=== PATIENT | male | born 1955 | race Caucasian/White ===

== ENCOUNTER 2018-08-02 16:29 | Emergency (ER) | payer OTHER ==
[2018-08-02 17:01] VITALS: BP 134/86
--- NOTE | 2018-08-02 17:38 | UC ---
Respiratory Complaint HPI - HPI Summary HPI Summary: 5 days of cough, congestion, PND and sinus pressure. No fever, sore throat or ear pain. No nausea/vomiting. with similar symptoms. - History of Current Complaint Chief Complaint: UCRespiratory Stated Complaint: RESP Time Seen by Provider: 08/02/18 17:08 Hx Obtained From: Patient Onset/Duration: Gradual Onset, Lasting Days, Still Present Timing: Constant Severity Initially: Moderate Severity Currently: Moderate Pain Intensity: 6 Pain Scale Used: 0-10 Numeric Character: Cough: Productive Aggravating Factors: Nothing Alleviating Factors: Nothing Associated Signs And Symptoms: Positive: URI, Nasal Congestion, Sinus Discomfort. Negative: Fever, Chills, Wheezing - Allergies/Home Medications Allergies/Adverse Reactions: Allergies Allergy/AdvReac Type Severity Reaction Status Date / Time niacin Allergy Severe burning Verified 08/02/18 17:02 sensation, flushing CHOLESTEROL MEDICATION Allergy Severe TENSE UP Uncoded 08/02/18 17:02 WITH COUGH PMH/Surg Hx/FS Hx/Imm Hx Previously Healthy: Yes - Surgical History Surgical History: Yes Surgery Procedure, Year, and Place: COLONOSCOPY WITH SEDATION, RIGHT HIP REPLACEMENT, left hip replacement - Family History Known Family History: Positive: Hypertension, Diabetes - Social History Alcohol Use: None Alcohol Amount: 6 PACK/WEEK Substance Use Type: None Smoking Status (MU): Never Smoked Tobacco - Immunization History Most Recent Influenza Vaccination: NO Most Recent Tetanus Shot: UP TO DATE Most Recent Pneumonia Vaccination: NO Review of Systems Constitutional: Negative ENT: Nasal Discharge, Sinus Congestion Respiratory: Cough Cardiovascular: Negative Gastrointestinal: Negative All Other Systems Reviewed And Are Negative: Yes Physical Exam Triage Information Reviewed: Yes Appearance: Well-Appearing, No Pain Distress, Well-Nourished Vital Signs: Initial Vital Signs Temp 99.1 F 08/02/18 16:57 Pulse 81 08/02/18 16:57 Resp 16 08/02/18 16:57 BP 134/86 08/02/18 16:57 Pulse Ox 99 08/02/18 16:57 Vital Signs Reviewed: Yes Eyes: Positive: Conjunctiva Clear ENT: Positive: Hearing grossly normal, Pharynx normal, TMs normal Neck: Positive: Supple, Nontender, No Lymphadenopathy Respiratory Exam: Normal Cardiovascular Exam: Normal Abdomen Description: Positive: Soft Musculoskeletal: Positive: No Edema Neurological: Positive: Alert Psychological: Positive: Age Appropriate Behavior Skin: Negative: rashes UC Diagnostic Evaluation - Laboratory O2 Sat by Pulse Oximetry: 99 Respiratory Course/Dx - Differential Dx/Diagnosis Provider Diagnoses: ACUTE URI Discharge - Sign-Out/Discharge Documenting (check all that apply): Patient Departure All imaging exams completed and their final reports reviewed: No Studies - Discharge Plan Condition: Stable Disposition: HOME Prescriptions: Amoxicillin PO (*) [Amoxicillin 500 MG CAP*] 500 mg PO Q12H #14 cap Patient Education Materials: Upper Respiratory Infection (ED) Referrals: Luke Morrissey MD [Primary Care Provider] - If Needed Additional Instructions: YOUR SYMPTOMS ARE LIKELY VIRALLY MEDIATED AND SHOULD RESOLVE ON THEIR OWN WITH TIME. NO INDICATION FOR ANTIBIOTICS AT PRESENT. REST, HYDRATE, OTC MEDS NEEDED. IF YOU ARE NOT IMPROVING OVER THE NEXT WEEK GO AHEAD AND FILL RX FOR ANTIBIOTIC. IF YOU START THE MEDICINE TAKE IT FOR THE FULL COURSE. FOLLOW-UP WITH PCP IF NEEDED. - Billing Disposition and Condition Condition: STABLE Disposition: Home
== END 2018-08-02 17:40 | disposition home or self-care (01) ==
LOC: UCEAST 16:29
DX: J06.9 Acute upper respiratory infection, unspecified (principal); Z96.643 Presence of artificial hip joint, bilateral; Z88.8 Allergy status to other drugs, medicaments and biological substances
CPT/HCPCS: 99212; G0463

== ENCOUNTER 2018-10-24 06:53 | Inpatient (IN) | payer OTHER ==
[2018-10-24] MEDS ORDERED: Heparin for STEMI(*) 5,000 UNITS/ML 1 ML VIAL IV ONE ×2 (07:07→07:10)
[2018-10-24] MEDS ORDERED: Ticagrelor* 90 MG TAB PO ONE ×2 (07:07→07:10)
[2018-10-24] MEDS ORDERED: NS 0.9% 1000 ML* 1,000 ML IV ONE (07:07)
[2018-10-24] MEDS ORDERED: Heparin 2 UNITS/ML IVPREMIX* 3,000 ML IV ONE (07:09)
[2018-10-24] MEDS ORDERED: VERAPAMIL 2.5 MG/ML 2 ML VIAL ** 5 mg/2 ml ONE (07:09)
[2018-10-24] MEDS ORDERED: Heparin(*) 1000 UNIT/ML 10 ML VIAL CATH LAB IV ONE (07:09)
--- NOTE | 2018-10-24 07:09 | ED ---
HPI Chest Pain - HPI Summary HPI Summary: Patient is a 63 y/o M presenting to ED via ambulance with complaints of midsternal chest pain with radiation to left arm onsetting 0230 today. Pt states woke him from sleep. Pt states pressure was 6/10 and discomfort left arm. Slight nausea no vomiting. no sob. No cough. EMS reports giving x2 nitro and 324 ASA with improvement of pain - reporting 1/10. no Hx of cardiac issues are reported. Pt does have elevated cholesterol - does not take statins as "allergic" Niacin caused flushing. Father and brother both with cardiac disease. No history of stroke, VT, bleeding disorders. No recent hx. b/l hip replacements. Patient is alert and oriented x3 at this time. On triage, pain is rated 3/10. Home medications and allergies are reviewed. Review of EKG revealed concerns of STEMI, STEMI code called at 0701, provider in room immediately to evaluate. - History of Current Complaint Chief Complaint: EDChestPainROMI Time Seen by Provider: 10/24/18 06:59 Hx Obtained From: Patient Onset/Duration: Started Hours Ago - onset 0230 today, Still Present Timing: Lasting Hours - onset 0230 Current Severity: Mild - 3/10 Pain Intensity: 3 Pain Scale Used: 0-10 Numeric - 3/10 Chest Pain Location: Mid Sternal Chest Pain Radiates: Yes Chest Pain Radiates To:: Arm - left Aggravating Factor(s): Nothing Alleviating Factor(s): Nothing Associated Signs and Symptoms: Positive: Chest Pain. Negative: Nausea, Vomiting - Additional Pertinent History Primary Care Physician: [id number] - Allergy/Home Medications Allergies/Adverse Reactions: Allergies Allergy/AdvReac Type Severity Reaction Status Date / Time niacin Allergy Severe burning Verified 08/02/18 17:02 sensation, flushing CHOLESTEROL MEDICATION Allergy Severe TENSE UP Uncoded 08/02/18 17:02 WITH COUGH PMH/Surg Hx/FS Hx/Imm Hx Previously Healthy: Yes Endocrine/Hematology History: Denies: Hx Anticoagulant Therapy, Hx Diabetes, Hx Thyroid Disease Cardiovascular History: Reports: Other Cardiovascular Problems/Disorders - HIGH CHOLESTEROL Denies: Hx Hypertension Respiratory History: Denies: Hx Asthma, Hx Chronic Obstructive Pulmonary Disease (COPD) GI History: Denies: Hx Ulcer Musculoskeletal History: Reports: Hx Arthritis - LEFT HIP, LOWER BACK, Other Musculoskeletal History - 3 SOFT TISSUE FUSED VERTABRAE IN NECK-FROM Sensory History: Reports: Hx Contacts or Glasses Denies: Hx Hearing Aid Opthamlomology History: Reports: Hx Contacts or Glasses - Surgical History Surgery Procedure, Year, and Place: COLONOSCOPY WITH SEDATION, RIGHT HIP REPLACEMENT, left hip replacement Hx Anesthesia Reactions: No Infectious Disease History: No Infectious Disease History: Denies: Hx Hepatitis, Hx Human Immunodeficiency Virus (HIV), Traveled Outside the [place] in Last 30 Days - Family History Known Family History: Positive: Hypertension, Diabetes - Social History Lives: With Family Alcohol Use: None Alcohol Amount: 6 PACK/WEEK Substance Use Type: Reports: None Smoking Status (MU): Never Smoked Tobacco Review of Systems Constitutional: Negative Positive: Chest Pain Negative: Shortness Of Breath Positive: Nausea. Negative: Vomiting All Other Systems Reviewed And Are Negative: Yes Physical Exam - Summary Physical Exam Summary: Vital Signs Reviewed: Yes A+Ox3, no distress Eyes: Conjunctiva Clear, ENT: Hearing grossly normal mmmoist Neck: Positive: Supple Respiratory: Positive: No respiratory distress, No accessory muscle use + CTA throughout no w/r Cardiovascular: RRR nl s1, s2 no m/r CBT <2 sec abd soft + BS nt/nd no guarding, no distension Musculoskeletal Exam: ALEXANDER x 4 without difficulty Strength Intact, ROM Intact Neurological: Positive: Alert, + sensation throughout Psychological: Positive: Normal Response To Family Skin: Positive: no rash, no ecchymosis, pale, no diaphoresis Triage Information Reviewed: Yes Vital Signs On Initial Exam: Initial Vitals Temp Pulse Resp BP Pulse Ox 97.1 F 69 16 100/58 98 10/24/18 06:56 10/24/18 06:56 10/24/18 06:56 10/24/18 06:56 10/24/18 06:56 Diagnostics - Vital Signs Vital Signs Temp Pulse Resp BP Pulse Ox 10/24/18 06:56 97.1 F 69 16 100/58 98 - Laboratory Lab Statement: Any lab studies that have been ordered have been reviewed, and results considered in the medical decision making process. - Radiology No standard instances Radiology Interpretation Completed By: ED Physician - no PTX no infiltrate - EKG No standard instances Cardiac Rate: NL EKG Rhythm: Sinus Rhythm ST Segment: : Normal - ST elevated inferior, no reciprocal changes Ectopy: None EKG Comparison: Other - STEMI Chest Pain Course/Dx - Course Course Of Treatment: Patient presents to ED by EMS. Patient states he woke at 2 :30 this morning reporting chest pressure with radiation to left arm and nausea. No vomiting. Patient was given aspirin and nitroglycerin by EMS with improvement. Patient does not have a cardiac history but does have a history of high cholesterol extensive family history of cardiac disease. On arrival patient's EKG revealed elevations in inferior leads. No cervical changes. Patient rated his pain a 1 out of 10 after receiving 324 mg of aspirin and 2 nitroglycerin by EMS. STEMI alert was called. Patient was given Proventil and heparin at the direction of Dr. Lewis - pt without h/o stroke, bleeding, clotting disorder. STEMI protocol was started. Discussed with patient as well as his concern for STEMI improvement in Her. States understanding. Questions answered best of my ability. She lab team as well as ICU team present at bedside the emergency department. - Diagnoses Provider Diagnoses: STEMI (ST elevation myocardial infarction) During the Visit The Following Alert/Code Occurred: STEMI - 07 called - Provider Notifications Discussed Care Of Patient With: Joshua Lewis - give Brilinta and 4000u heparin Time Discussed With Above Provider: 07:03 Instructed by Provider To: Admit As Inpatient - Critical Care Time Critical Care Time: 30-74 min Discharge - Sign-Out/Discharge Documenting (check all that apply): Patient Departure - Discharge Plan Condition: Good Disposition: ADMITTED TO [facility] Referrals: Luke Morrissey MD [Primary Care Provider] - - Billing Disposition and Condition Condition: GOOD Disposition: Admitted to [facility] - Attestation Statements Document Initiated by Joann: Yes Documenting Scribe: Daniel Pinzon Provider For Whom Joann is Documenting (Include Credential): Valeri Foster MD Scribe Attestation: IDaniel, scribed for Valeri Foster MD on 10/24/18 at 0731. Scribe Documentation Reviewed: Yes Provider Attestation: The documentation as recorded by the Daniel oconnell accurately reflects the service I personally performed and the decisions made by me, Valeri Foster MD Status of Scribe Document: Viewed
[2018-10-24] MEDS ORDERED: Iohexol 350 (CONTRAST) 200 ML MDV IV ONE (07:10)
[2018-10-24] MEDS ORDERED: Lidocaine 1% INJ* 10 MG/ML 30 ML SDV ONE (07:10)
[2018-10-24] MEDS ORDERED: nitroGLYCERIN DRIP* 25,000 MCG/250 ML BTL ONE (07:10)
[2018-10-24 07:19] LABS: ABS Basophils 0.1 10^3/ul (0-0.2); ABS Eosinophils 0.3 10^3/ul (0-0.6); ABS Lymphocytes 1.9 10^3/ul (1.0-4.8); ABS Monocytes 0.6 10^3/ul (0-0.8); ABS Neutrophils 7.5 10^3/ul (1.5-7.7); ABS Nucleated RBC 0 10^3/ul; Hematocrit 44 % (42-52); Hemoglobin 15.1 g/dl (14.0-18.0); Mean Corpuscular HGB Conc 35 g/dl (31-36); Mean Corpuscular Hemoglobin 32 pg (27-31); Mean Corpuscular Volume 92 fL (80-94); Nucleated Red Blood Cells % 0; Platelet Count 177 10^3/ul (150-450); Red Blood Count 4.76 10^6/ul (4.00-5.40); Red Cell Distribution Width 13 % (10.5-15); White Blood Count 10.4 10^3/ul (3.5-10.8)
[2018-10-24] MEDS ORDERED: fentaNYL* 50 MCG/ML 2 ML VIAL (100 MCG VIAL) ONE (07:29)
[2018-10-24] MEDS ORDERED: Midazolam* 1 MG/ML 10 ML VIAL (10 MG) ONE (07:29)
[2018-10-24 07:38] LABS: Activated Partial Thrombo Time 27.7 seconds (26.0-36.3); INR 1.01 (0.77-1.02)
[2018-10-24] MEDS ORDERED: Bivalirudin(*) 250 MG VIAL ONE (07:39)
[2018-10-24 07:41] LABS: Albumin/Globulin Ratio 1.5 (1-3); BUN/Creatinine Ratio 15.9 (8-20); Calcium 9.2 mg/dL (8.6-10.3); EGFR Non-African American 87.5 (>60); Globulin 2.6 g/dL (2-4); Potassium 3.9 mmol/L (3.5-5.0); Total Bilirubin 0.6 mg/dL (0.2-1.0); Total Protein 6.6 g/dL (6.4-8.9)
--- NOTE | 2018-10-24 07:43 | UC ---
- Progress Note Progress Note: Patient Name: RO HENDERSON Medical Record#: [id number] Ordering Physician: Valeri Foster MD Acct.#: [id number] : 1955 Age: 63 Sex: M Location: CARDIAC CATHETERIZATION LAB Exam Date: 10/24/18706 ADM Status: REG [facility] [place] Order Information: CHEST AP PORTABLE Accession Number: [id number] CPT: 06500 HISTORY: chest pain COMPARISONS: None VIEWS: 1: frontal AP view of the chest at 7:20 AM FINDINGS: LINES AND TUBES: None. CARDIOMEDIASTINAL SILHOUETTE: The cardiomediastinal silhouette is normal for portable technique. PLEURA: The costophrenic angles are sharp. No pleural abnormalities are noted. LUNG PARENCHYMA: The lungs are clear. ABDOMEN: The upper abdomen is clear. There is no subphrenic gas. BONES AND SOFT TISSUES: No bone or soft tissue abnormalities are noted. IMPRESSION: NO ACTIVE CARDIOPULMONARY DISEASE. <Electronically signed by Paco Fowler MD in OV> 10/24/18736 Dictated By: Paco Fowler MD Dictated Date/Time: 10/24/18736 Transcribed Date/Time: 10/24/18736 Copy to: CC:Luke Morrissey MD; Valeri Foster MD; Joshua Lewis MD Imaging - [facility] Imaging - [facility] [address] [address] ph ([phone]) ph ([phone]) ph ([phone]) This report is only to be considered final once signed by the Provider(s) as displayed in the "<Electronically Signed by >" field (s). Absence of a signature indicates the report is in a draft status and still needs to be finalized. In the event this document was created by someone other than the signing Provider, the individual initiating the document will be listed in the "Entered by:" or "Dictated by:" [email or web address]. 1 of 1 Course/Dx - Diagnoses Provider Diagnoses: STEMI (ST elevation myocardial infarction) During the Visit The Following Alert/Code Occurred: STEMI - 0701 called - Provider Notifications Time Discussed With Above Provider: 07:03 Instructed by Provider To: Admit As Inpatient - Critical Care Time Critical Care Time: 30-74 min Discharge - Sign-Out/Discharge Documenting (check all that apply): Patient Departure - Discharge Plan Condition: Good Disposition: ADMITTED TO [facility] - Billing Disposition and Condition Condition: GOOD Disposition: Admitted to [facility]
[2018-10-24] MEDS ORDERED: Atropine SYRINGE* 0.1 MG/ML 10 ML SYRINGE (1 MG) ONE (07:59)
[2018-10-24] MEDS ORDERED: Norepinephrine VIAL* 1 MG/ML 4 ML VIAL ONE (07:59)
[2018-10-24] MEDS ORDERED: Nitroglycerin TAB 0.4 MG* 0.4 MG TAB SL PRN (08:24)
[2018-10-24] MEDS ORDERED: Ondansetron INJ* 2 MG/ML VIAL IV PRN (08:24)
[2018-10-24] MEDS ORDERED: Zolpidem TAB* 5 MG PO PRN (08:24)
[2018-10-24] MEDS ORDERED: Docusate CAP* 100 MG PO PRN (08:24)
[2018-10-24] MEDS ORDERED: fentaNYL* 50 MCG/ML 2 ML VIAL (100 MCG VIAL) IV PRN (08:24)
[2018-10-24] MEDS ORDERED: Acetaminophen TAB* 325 MG PO PRN (08:24)
[2018-10-24] MEDS ORDERED: NS 0.9% 1000 ML* 1,000 ML IV SCH (08:30)
[2018-10-24] MEDS ORDERED: CMCS Rosuvastatin (NF) 20 MG TAB PO ONE (09:00)
[2018-10-24] MEDS: Aspirin 81 mg CHEW TAB* 81 MG TAB.CHEW PO SCH (09:48)
[2018-10-24] MEDS: Metoprolol Tartrate TAB* 25 MG PO SCH ×2 (09:48→20:49)
[2018-10-24] MEDS: Ticagrelor* 90 MG TAB PO SCH ×2 (09:51→20:49)
--- NOTE | 2018-10-24 13:42 | HP ---
CC: Dr. Luke Morrissey HISTORY AND PHYSICAL: DATE OF ADMISSION: 10/24/18 CHIEF COMPLAINT: The patient presents with chest discomfort starting at 2:00 in the morning with abnormal EKG in the emergency room suggesting acute ST- segment elevation inferior wall myocardial infarction. HISTORY OF PRESENT ILLNESS: The patient is a pleasant 63-year-old gentleman with no prior known cardiac history. Specifically, he denies any history of myocardial infarction, congestive heart failure, or significant heart rhythm disturbance. The patient stated that at 2:00 in the morning, he woke with a chest pressure sensation that started radiating up towards his throat area and into his left shoulder. He did not have profound shortness of breath or diaphoresis with it. He actually took a beer to see if that would help relax him and apparently the symptoms would last about an hour, then go away for a couple of minutes and come back again in a slightly stuttering fashion, albeit still a prolonged period. He eventually sought medical attention and EMS were called. The EMS on presentation tried to get an EKG, there was much artifact but they were questioning whether there was ST-segment elevation in the inferior leads; however, they could not definitively comment on it. En route, they gave him nitroglycerin and 324 mg of aspirin. The patient stated there was some improvement of his symptoms but they were still present in the emergency room. Repeat EKG in the emergency room revealed the ST-segment elevation with what appeared to be already Q waves developed in several of the inferior leads. There was reciprocal ST-segment depression in I and aVL. A STEMI alert was called. On my arrival, he was still symptomatic, albeit not severe in nature. The risks and benefits were explained to him regarding proceeding for emergent cardiac catheterization and possible intervention. He had already received 4000 units of heparin by the emergency room and 180 mg Brilinta. He and his understood the risks and benefits and wished to proceed. PAST MEDICAL HISTORY AND CARDIAC RISK FACTORS: He has hyperlipidemia and is apparently intolerant of statins due to muscle aching. He denied any history of hypertension, any history of diabetes, and he has never smoked. PAST SURGICAL HISTORY: Included bilateral hip surgeries. FAMILY HISTORY: He has a family history significant for father and brother who have cardiac problems. REVIEW OF SYSTEMS: Pertinent to proceeding emergently to the cardiovascular laboratory: The patient denied any history of hematochezia, hematemesis or hematuria. He denied any history of stroke or TIA. He denied any history of contrast allergy or kidney disease. PHYSICAL EXAMINATION GENERAL: When I see him in the emergency room reveals a gentleman in mild distress, nervous in nature. VITAL SIGNS: Blood pressure 100-102/59, pulse 69 and regular, respirations 19, O2 saturation 98%. HEENT: Conjunctivae were pink. Sclerae clear. Mouth reveals moist mucosa. NECK: Supple. There is no increased JVP. Carotids have fair upstroke and volume and I do not appreciate definitive bruits or transmitted murmur. LUNGS: Reveal no accessory muscle usage. There is fair excursion. There is no active rales, rhonchi or wheezes present. HEART: Reveals no visible heaves, no palpable heaves or thrills. Heart sounds in general are distant due to large chest. No significant systolic or diastolic murmur appreciated. ABDOMEN: Obese, soft, nontender. EXTREMITIES: Without clubbing, cyanosis or rayne pitting edema. Peripheral pulses are intact. Femoral pulses noted without bruits. NEUROLOGIC: The patient is alert and oriented with normal mentation. MUSCULOSKELETAL: The patient moves all extremities appropriate. PSYCHOLOGICAL: The patient with appropriate affect. LABORATORY DATA: Laboratory results at the time of seeing him in the emergency room were still pending. By the time he was brought up to the cardiovascular laboratory, his BUN and creatinine were found to be 14 and 0.8, lactic acid was 2.1, total CPK 71, MB 4.4, and troponin of 0.07. B-natriuretic peptide was 25. Hemoglobin and hematocrit were 15.1 and 44 and platelet count of 177,000. OVERALL ASSESSMENT: Forrest presents now in acute throes of ST-segment elevation inferior wall myocardial infarction. He is still symptomatic with ST- segment elevations and depressions. PLAN/RECOMMENDATIONS: The risks and benefits were explained. He understood them and wished to proceed. He has already received heparin, full dose aspirin and 180 mg Brilinta. Further management will be made pending results of the cardiac catheterization. The risks and benefits were explained to his and him and they both agreed to proceed. [id number]/[facility] #: [id number] MTDD
--- NOTE | 2018-10-24 23:21 | CATH ---
CC: Dr. Luke Morrissey* CARDIAC CATHETERIZATION AND INTERVENTIONAL REPORT: DATE OF PROCEDURE: 10/24/18 INDICATION FOR THE PROCEDURE: The patient with acute KO-vfzxhat-duxwhdnxr inferior wall myocardial infarction, with still persistent symptoms and ST elevation. PROCEDURE PERFORMED: Coronary arteriography, left heart catheterization, left ventriculography, balloon angioplasty and placement of a 3.0 x 38 mm long Synergy drug-eluting stent postdilated proximally to 3.5 mm. CONSENT: The patient was interviewed and examined in the emergency room, where the risks and benefits were explained. He understood them and wished to proceed. PRE-CARDIAC CATHETERIZATION LABORATORY RESULTS: Laboratory results were pending prior to the interview in the emergency room. Once in the cardiovascular laboratory, his BUN and creatinine were found to be normal at 14 and 0.8. Sodium was 139, potassium 3.9, chloride 105, bicarb 25, hemoglobin and hematocrit of 15.1 and 44 with a platelet count of 177,000. MEDICATIONS GIVEN DURING THE CARDIAC CATHETERIZATION: The patient received Versed and fentanyl in addition to an Angiomax bolus and an Angiomax drip started due to a subtherapeutic ACT. The patient received an atropine bolus for bradycardia. EQUIPMENT UTILIZED: 1. Right femoral artery sheath - a 6.5-[place] Merit Prelude sheath. 2. Diagnostic coronary catheter for the left coronary artery with a 5-[place] FL4 curve catheter, for the left coronary artery a guiding 6-[place] ART4 curve with side holes guide catheter. The diagnostic wire utilized was a 175 length J -tip guidewire. The interventional guidewire was a 190 cm All Star guidewire. 3. The initial balloon angioplasty catheter was a 2.5 x 15 mm long Emerge balloon. 4. The stent placed was a 3.0 x 38 mm long Synergy drug-eluting stent. 5. Post-stent deployment balloon inflation catheters included a 3.0 x 20 mm long NC Emerge and a 3.5 x 12 mm long NC Emerge balloon. 6. Left heart catheterization catheter was a 5-Niue[place] 145-degree angled pigtail catheter. 7. The closure device utilized was a 6/7-[place]ue[place] Mynx closure device. APPROACH: The decision was made to proceed via femoral artery approach given the delayed presentation of the patient with ongoing symptoms. DESCRIPTION OF PROCEDURE: The patient was prepped and draped in sterile fashion. A formal time-out was performed. The right femoral artery area was anesthetized with 1% lidocaine. The right femoral artery was cannulated with an anterior wall only stick. The sheath was placed. Coronary arteriography was performed utilizing the 5-[place] FL4 curve catheter for the left coronary artery and the guide catheter 6-Niue[place] ART4 curve with side holes for the right. ACT was checked and found to be subtherapeutic from the heparin in the emergency room. As such, an Angiomax bolus was given and an Angiomax drip was started. A 1/4 guidewire was advanced down the right coronary artery through the total occlusion. Balloon angioplasty was performed utilizing the 2.5 x 15 mm long Emerge balloon. Following this, the 3.0 x 38 mm long stent was placed with post - deployment inflations to high pressures with the NC balloons as described above. The artery was assessed at the end of this procedure. Following this, left heart catheterization was performed utilizing the pigtail catheter advanced to the ascending aorta. The catheter was passed across the aortic valve and left ventricular pressure was recorded. Left ventriculography was performed utilizing a total of 28 cc of Omnipaque dye at a rate of 14 cc per second. The catheter was then pulled back across the aortic valve to recheck gradient. At the end of the case, an injection was made into the right femoral sheath to assess the eligibility to utilize the closure device. It was found to be acceptable for this and as such, a 6/7-Niue[place] Mynx closure device was deployed with good hemostasis. The total contrast used was 118 cc of Omnipaque dye. The radiation exposure included 10.6 minutes of fluoro time. The air kerma radiation was 2416 milligray. The DAP radiation was 14,884 microgray per meter squared. RESULTS: HEMODYNAMIC DATA: Left heart catheterization - central aortic pressure recorded at 127/76 with a mean of 99, left ventricular pressure 134 over left ventricular end diastolic pressure of 15. LEFT VENTRICULOGRAPHY: Revealed normal, borderline hyperdynamic left ventricular systolic function with moderate hypokinesis of the proximal inferior wall. The overall ejection fraction estimated at 50% to 55%. CORONARY ARTERIOGRAPHY: A. Left coronary artery: 1. Left main - there was mild tapering of the distal left main with a narrowing of approximately 15% to 20%. 2. Left anterior descending artery - the left anterior descending artery had calcium seen throughout its proximal to mid portion. The mid portion of the vessel had an area of stenosis that appeared to be as much as 70% to 75% at the takeoff of a small-caliber mid diagonal branch. Prior to that was an area that appeared to have some degree of haze with a narrowing of 40% to 45% in perhaps its worst view. Past the mid narrowing of 70%, there was a segment of disease of approximately 45% to 50%, short nature. 3. Circumflex artery - a nondominant vessel supplying a thin first and second obtuse marginal branch to the third obtuse marginal branch with a moderate-sized caliber that bifurcated into a superior and an inferior branch. Just prior to the bifurcation was an area of narrowing of about 70%. The lower branch then had a significant 85% to 90% obstruction seen. IVETTE-3 flow was seen throughout this. The continuation of the circumflex supplied a very thin low-lying posterior left ventricular branch, which gave collaterals to the distal right coronary artery. There were poor collaterals trying to fill through the septal perforators to the right coronary artery. These were not significant in supplying the right coronary artery. B. Right coronary artery - a dominant vessel with diffuse disease proximally an area of 40%, followed by a second area of 75% to 80%, followed by a total occlusion in its mid segment. On reconstitution of the vessel, it supplied the PDA and posterior left ventricular branch. Mild disease was seen in those branches, but no significant obstruction. INTERVENTION INTO TOTALLY OCCLUDED MID RIGHT CORONARY ARTERY AND MORE PROXIMAL 75% TO 80% OBSTRUCTION: Successful reconstitution of totally occluded right coronary artery with balloon angioplasty and placement of a 3.0 x 38 mm long Synergy drug- eluting stent post dilated proximally to 3.5 mm with IVETTE-3 flow and 10% residual narrowing noted. OVERALL ASSESSMENT: Successful interruption of inferior ST-segment elevation myocardial infarction with balloon angioplasty and placement of a 3.0 x 38 mm long Synergy drug-eluting stent post dilated to high pressures and more proximally to 3.5 to 3.7 mm and distally to 3.2 mm with successful result. Aggressive risk factor management will be pursued. There is a question of intolerance to statin therapy, and at this point in time, consideration may have to be made toward switching him to subcutaneous injectable antihyperlipidemic agents if he is truly intolerant of the statins. We will place him back on statins currently in lower than recommended dosage and see how he tolerates. We will consult Dietary for a low-cholesterol diet and for weight reduction as well. Dual antiplatelet therapy is recommended for a minimum of 1 year's time. With respect to his residual lesions, these will be addressed most likely in a separate setting either prior to discharge or within the next month's time. [id number]/[facility] #: [id number] RAFAEL
[2018-10-25 05:00] LABS: ABS Basophils 0 10^3/ul (0-0.2); ABS Eosinophils 0.2 10^3/ul (0-0.6); ABS Lymphocytes 1.4 10^3/ul (1.0-4.8); ABS Monocytes 0.6 10^3/ul (0-0.8); ABS Neutrophils 6.4 10^3/ul (1.5-7.7); ABS Nucleated RBC 0 10^3/ul; Eosinophil % 2.7 %; Hematocrit 39 % (42-52); Hemoglobin 13.8 g/dl (14.0-18.0); Lymphocyte % 16.4 %; Mean Corpuscular HGB Conc 35 g/dl (31-36); Mean Corpuscular Hemoglobin 32 pg (27-31); Mean Corpuscular Volume 92 fL (80-94); Mean Platelet Volume 8.2 fL (7.4-10.4); Nucleated Red Blood Cells % 0; Platelet Count 151 10^3/ul (150-450); Red Blood Count 4.25 10^6/ul (4.00-5.40); Red Cell Distribution Width 13 % (10.5-15); White Blood Count 8.7 10^3/ul (3.5-10.8)
[2018-10-25 05:20] LABS: Albumin 3.5 g/dL (3.2-5.2); Albumin/Globulin Ratio 1.5 (1-3); BUN/Creatinine Ratio 16.7 (8-20); Calcium 8.7 mg/dL (8.6-10.3); EGFR Non-African American 100.5 (>60); Globulin 2.3 g/dL (2-4); HDL Cholesterol 29.2 mg/dL; Potassium 3.8 mmol/L (3.5-5.0); Total Bilirubin 0.8 mg/dL (0.2-1.0); Total Protein 5.8 g/dL (6.4-8.9)
[2018-10-25] MEDS: Ticagrelor* 90 MG TAB PO SCH ×2 (08:48→20:26)
[2018-10-25] MEDS: Aspirin 81 mg CHEW TAB* 81 MG TAB.CHEW PO SCH (08:48)
[2018-10-25] MEDS ORDERED: Metoprolol Succinate XL TAB* 25 MG PO SCH (09:00)
[2018-10-25] MEDS ORDERED: Perflutren Lipid Microsphere* 3 ML VIAL ONE (10:45)
[2018-10-25] MEDS: Enoxaparin(*) 40 MG/0.4 ML SYR SUBCUT SCH (16:55)
[2018-10-25] MEDS: Atorvastatin* 40 MG TAB PO SCH (20:26)
[2018-10-25] MEDS: Metoprolol Succinate XL TAB* 25 MG PO SCH (21:24)
[2018-10-26 06:44] LABS: CO2 Carbon Dioxide 23 mmol/L (22-32); Chloride 106 mmol/L (101-111); Sodium 137 mmol/L (135-145)
[2018-10-26 06:50] LABS: BUN/Creatinine Ratio 14.8 (8-20); Blood Urea Nitrogen 12 mg/dL (6-24); EGFR Non-African American 96.2 (>60); Glucose 90 mg/dL (70-100)
[2018-10-26 07:06] LABS: Anion Gap 8 mmol/L (2-11)
[2018-10-26] MEDS: Aspirin 81 mg CHEW TAB* 81 MG TAB.CHEW PO SCH (07:55)
[2018-10-26] MEDS: Metoprolol Succinate XL TAB* 25 MG PO SCH ×2 (07:55→21:49)
[2018-10-26] MEDS: Ticagrelor* 90 MG TAB PO SCH ×2 (07:55→21:36)
[2018-10-26] MEDS ORDERED: diPHENhydraMINE PO* 25 MG PO PRN (08:26)
[2018-10-26] MEDS ORDERED: Diazepam TAB(*) 5 MG PO PRN (08:26)
[2018-10-26] MEDS: Enoxaparin(*) 40 MG/0.4 ML SYR SUBCUT SCH (16:30)
[2018-10-26] MEDS: Atorvastatin* 40 MG TAB PO SCH (21:34)
[2018-10-27] MEDS ORDERED: NS 0.9% 1000 ML* 1,000 ML IV SCH (05:30)
[2018-10-27] MEDS: Aspirin 81 mg CHEW TAB* 81 MG TAB.CHEW PO SCH ×2 (06:42→07:36)
[2018-10-27] MEDS: Metoprolol Succinate XL TAB* 25 MG PO SCH ×3 (06:43→21:14)
[2018-10-27] MEDS: Ticagrelor* 90 MG TAB PO SCH ×3 (06:46→21:15)
[2018-10-27] MEDS ORDERED: Heparin(*) 1000 UNIT/ML 10 ML VIAL CATH LAB IV ONE (07:00)
[2018-10-27] MEDS ORDERED: fentaNYL* 50 MCG/ML 2 ML VIAL (100 MCG VIAL) ONE (07:00)
[2018-10-27] MEDS ORDERED: Midazolam* 1 MG/ML 10 ML VIAL (10 MG) ONE (07:00)
[2018-10-27] MEDS ORDERED: Iohexol 350 (CONTRAST) 200 ML MDV IV ONE (07:01)
[2018-10-27] MEDS ORDERED: nitroGLYCERIN DRIP* 25,000 MCG/250 ML BTL ONE (07:01)
[2018-10-27] MEDS ORDERED: VERAPAMIL 2.5 MG/ML 2 ML VIAL ** 5 mg/2 ml ONE (07:01)
[2018-10-27] MEDS ORDERED: Heparin 2 UNITS/ML IVPREMIX* 3,000 ML IV ONE (07:01)
[2018-10-27] MEDS ORDERED: Lidocaine 1% INJ* 10 MG/ML 30 ML SDV ONE (07:01)
[2018-10-27] MEDS ORDERED: Bivalirudin(*) 250 MG VIAL ONE (07:46)
[2018-10-27] MEDS ORDERED: Nitroglycerin TAB 0.4 MG* 0.4 MG TAB SL PRN (08:46)
--- NOTE | 2018-10-27 12:12 | CATH ---
CC: Dr. Luke Morrissey INTERVENTIONAL REPORT: DATE OF PROCEDURE: 10/27/18 PRIMARY DOCTOR: Dr. Luke Morrissey. REASON FOR THE PROCEDURE: Patient with critical stenosis in the distal circumflex and low lying obtuse marginal branch, status post intervention for ST segment elevation, inferior wall myocardial infarction 3 days ago, now for interventional procedure in light of presence of significant residual coronary artery disease. PROCEDURE: Balloon angioplasty of the lower branch of the bifurcating left obtuse marginal branch and placement of a 2.5 x 12 mm long Synergy drug-eluting stent dilated to 2.6 mm, balloon angioplasty and placement of a 3.0 x 15 mm long Xience Eileen drug-eluting stent, post dilated to 3.3 mm. CONSENT: The patient was interviewed and examined on the floor of the hospital where the risks and benefits of this procedure were explained. He understood them and wished to proceed. PRE-INTERVENTION LABORATORY RESULTS: Hemoglobin and hematocrit 13.8 and 39, platelet count of 151,000. BUN and creatinine 12 and 0.8. Sodium 137, potassium 3.9, chloride 106, bicarb 23. MEDICATIONS GIVEN DURING THE PROCEDURE: Patient received radial artery cocktail includin. Heparin 3000 units. 2. Nitroglycerin 300 mcg. 3. Verapamil 3 mg. Patient received additional heparin bolus as needed guided by ACT. The patient received intracoronary nitroglycerin. EQUIPMENT: 1. Right radial artery sheath, 6-Citizen [place] Glidesheath. 2. Guide catheter, a 6-[place]izen [place] VL4 curve Runway guide catheter. 3. Diagnostic guidewire with a [place] curved 260 length wire. 4. Interventional wires were 2 BMW 190 cm length wires. 5. Initial balloon angioplasty to both lesions catheter - a 2.5 x 12 mm long NC Emerge balloon. 6. Stents utilized, stent is a 2.5 x 12 mm long Synergy drug-eluting stent in the lower branch of the left obtuse marginal branch, and a 3.0 x 15 mm long Xience Eileen balloon in the more proximal portion of left obtuse marginal branch. 7. Post stent deployment balloon inflation to high pressure in more proximal portion of left obtuse marginal branch - utilizing a 3.25 x 8 mm long NC Emerge balloon. APPROACH: The radial artery was assessed by ultrasound on the floor in the hospital and found to be an acceptable approach. PROCEDURE IN DETAIL: Patient was brought to the cardiovascular laboratory and a formal time-out was performed. The patient was prepped and draped in sterile fashion. The right radial artery area was anesthetized with 1% lidocaine and under ultrasound guidance, the right radial artery was cannulated. Diagnostic imaging of the left coronary artery was obtained with the guide catheter. Additional heparin bolus was utilized to obtain a therapeutic ACT. The 2 BMW wires were advanced, one into the distal low branch of the left obtuse marginal , one into the upper branch. Balloon angioplasty was then performed to the distal lesion and the more proximal lesion. Following this, the 2.5 x 12 mm long Synergy drug-eluting stent was deployed to the distal area and the 3.0 x 15 mm long Eileen Xience drug-eluting stent was deployed to the more proximal area. Post deployment dilatations were made with a 3.25 x 8 mm long NC Emerge balloon to high pressures to obtain 3.3 mm diameter. At the end of the case, the artery was assessed both with wires in place and wires removed. The guiding catheter and sheath were removed and hemostasis was obtained with a Vasband. The reverse barbeau was a B. The total contrast used was 120cc of omnipaque contrast. The radiation exposure included 11.1 minutes of fluoro time, the Air Karma radiation was 2083 milligray, the DAP was 11,535 microGy/m2. RESULTS: Successful reduction of critical 95% lesion in the lower branch of the bifurcating left obtuse marginal branch with balloon angioplasty and placement of a 2.5 x 12 mm long Synergy drug-eluting stent dilated to 2.65 to 2.7 mm with IVETTE 3 flow. No dissection seen, 0% residual stenosis. Successful intervention into the more proximal portion prior to the bifurcation of the left obtuse marginal branch with balloon angioplasty and placement of 3.0 x 15 mm long Xience Eileen drug- eluting stent post dilated to 3.3 mm with IVETTE 3 flow and less than 10% residual stenosis. The patient will be maintained on dual antiplatelet therapy for a minimum of a year's time given his STEMI presentation. Further assessment of his known lesion in his LAD will be made as an outpatient with probable stress testing. Aggressive risk factor management will be pursued as well. [id number]/[facility] #: [id number] RAFAEL
[2018-10-27] MEDS: Enoxaparin(*) 40 MG/0.4 ML SYR SUBCUT SCH (17:43)
[2018-10-27] MEDS: Atorvastatin* 40 MG TAB PO SCH (21:14)
[2018-10-28 06:11] LABS: ABS Basophils 0.1 10^3/ul (0-0.2); ABS Eosinophils 0.3 10^3/ul (0-0.6); ABS Lymphocytes 1.4 10^3/ul (1.0-4.8); ABS Monocytes 0.7 10^3/ul (0-0.8); ABS Neutrophils 8.7 10^3/ul (1.5-7.7); ABS Nucleated RBC 0 10^3/ul; Eosinophil % 2.5 %; Hematocrit 43 % (42-52); Hemoglobin 14.8 g/dl (14.0-18.0); Lymphocyte % 12.7 %; Mean Corpuscular HGB Conc 35 g/dl (31-36); Mean Corpuscular Hemoglobin 32 pg (27-31); Mean Corpuscular Volume 92 fL (80-94); Mean Platelet Volume 8.3 fL (7.4-10.4); Nucleated Red Blood Cells % 0; Platelet Count 164 10^3/ul (150-450); Red Blood Count 4.67 10^6/ul (4.00-5.40); Red Cell Distribution Width 13 % (10.5-15); White Blood Count 11.2 10^3/ul (3.5-10.8)
[2018-10-28 06:32] LABS: Albumin 3.7 g/dL (3.2-5.2); Albumin/Globulin Ratio 1.4 (1-3); BUN/Creatinine Ratio 13.6 (8-20); EGFR Non-African American 96.2 (>60); Globulin 2.7 g/dL (2-4); Total Bilirubin 0.9 mg/dL (0.2-1.0); Total Protein 6.4 g/dL (6.4-8.9)
[2018-10-28] MEDS: Metoprolol Succinate XL TAB* 25 MG PO SCH (09:15)
[2018-10-28] MEDS: Ticagrelor* 90 MG TAB PO SCH (09:15)
[2018-10-28] MEDS: Aspirin 81 mg CHEW TAB* 81 MG TAB.CHEW PO SCH (09:15)
[2018-10-28 10:17] VITALS: BP 124/80
--- NOTE | 2018-10-28 11:00 | DS ---
CC: Dr. Morrissey DISCHARGE SUMMARY: DATE OF ADMISSION: 10/24/18 DATE OF DISCHARGE: 10/28/18 FINAL DIAGNOSES: 1. ST-segment elevation inferior wall myocardial infarction. 2. Stenotic coronary artery disease. 3. Hyperlipidemia. 4. Obesity. DISCHARGE MEDICATIONS: 1. Aspirin 81 mg once a day. 2. Atorvastatin 40 mg once a day. 3. Metoprolol succinate 25 mg twice a day. 4. Nitroglycerin sublingual 0.4 mg p.r.n. 5. Brilinta 90 mg twice a day. 6. Amoxicillin as needed prior to dental procedures (prior hip surgery). HOSPITAL COURSE: The patient is a pleasant 63-year-old gentleman who presented several hours into an ST-segment elevation inferior wall myocardial infarction on 10/24/18. He was taken to the cardiovascular laboratory where cardiac catheterization was performed. It revealed a totally occluded mid right coronary artery that was successfully recanalized with placement of a 3.0 x 38 mm long Synergy drug-eluting stent dilated to 3.5 mm more proximally. At that point, the patient was noted to have significant disease involving the circumflex, last low- lying bifurcating obtuse marginal branch with a critical 90% lesion seen in the lower branch and just prior to the bifurcation a significant blockage of 80% to 85%. The left anterior descending artery was noted to have a mid lesion that appeared to be as much as 70% to 75%. During the course of the hospitalization, he underwent intervention into the circumflex, left obtuse marginal branch with placement of a 2.5 x 12 mm long Synergy drug-eluting stent in the lower branch and placement of a 3.0 x 15 mm long Xience Eileen drug-eluting stent prior to the bifurcation. Since that time, he had done well while in the hospital up and about without recurrent symptoms. With respect to his initial myocardial infarction, his CPKs peaked at 346, MB peaked at 9.2. His EKG interestingly seemed to already have Q waves in the inferior leads that may have been secondary to a stuttering infarction, prior infarction or left axis deviation. He had an echocardiogram done during this hospitalization that revealed an overall EF of 50% to 55% with basal inferior wall hypokinesis. There was trace mitral and trace tricuspid regurgitation. On the day of discharge, he was up and about, asymptomatic and stabilized and discharged home. PHYSICAL EXAMINATION ON THE DAY OF DISCHARGE: Revealed blood pressure 130/70 prior to getting his metoprolol, his pulse was in the 60s to 70s, O2 saturation 98% on room air, respirations 16. Neck was supple. No increased JVP. Carotid had good upstroke and volume. I did not appreciate bruits. Conjunctivae are pink. Sclerae clear. Lungs revealed no accessory muscle usage. There was good excursion. There were mild decreased breath sounds bilaterally due to large chest. Heart revealed decreased breath sounds. No significant enlarged PMI. Normal S1, S2. No significant murmur. Abdomen was soft and nontender without organomegaly. Extremities revealed a healed right femoral artery area with minimal ecchymosis from the original intervention for his inferior wall myocardial infarction. His right radial artery was utilized to intervene on his circumflex and that wound looked good with excellent antegrade flow with a reverse Barbeau sign grade A. I discussed at length with him the importance of dual-antiplatelet therapy and not missing a dose of that. I explained the importance of starting an aggressive cardiac diet for also weight reduction. He does not smoke. He will be seen by my partner, Dr. Miranda in 1 week after discharge. At that point in time, we will consider timing of setting up a stress test to look at LAD ischemia. If it is present, we will consider intervening into the mid LAD area. He was given a cardiac education booklet along with his stent cards at the time of discharge. [id number]/[facility] #: [id number] RAFAEL
== END 2018-10-28 11:00 | disposition home or self-care (01) | DRG 174 ==
LOC: ED 06:53 → CHICATH 07:19 → ICU 08:59 → MEDTELE 10-25 16:10 → ICU 10-27 08:48
PROVIDERS: ADMIT Internal Medicine Cardiovascular Disease; ATTEND Internal Medicine Cardiovascular Disease
PROC: 4A023N7 Measurement of Cardiac Sampling and Pressure, Left Heart, Percutaneous Approach (ICD-10-PCS; 2018-10-24)
PROC: B2151ZZ Fluoroscopy of Left Heart using Low Osmolar Contrast (ICD-10-PCS; 2018-10-24)
PROC: 027034Z Dilation of Coronary Artery, One Artery with Drug-eluting Intraluminal Device, Percutaneous Approach (ICD-10-PCS; 2018-10-24)
PROC: 0270346 Dilation of Coronary Artery, One Artery, Bifurcation, with Drug-eluting Intraluminal Device, Percutaneous Approach (ICD-10-PCS; 2018-10-24)
PROC: B2111ZZ Fluoroscopy of Multiple Coronary Arteries using Low Osmolar Contrast (ICD-10-PCS; principal; 2018-10-24 07:00)
DX: I21.19 ST elevation (STEMI) myocardial infarction involving other coronary artery of inferior wall (principal); Z96.643 Presence of artificial hip joint, bilateral; E78.00 Pure hypercholesterolemia, unspecified; E78.5 Hyperlipidemia, unspecified; E66.9 Obesity, unspecified; I25.10 Atherosclerotic heart disease of native coronary artery without angina pectoris; I08.1 Rheumatic disorders of both mitral and tricuspid valves; Z68.30 Body mass index [BMI] 30.0-30.9, adult; Z79.82 Long term (current) use of aspirin; Z88.1 Allergy status to other antibiotic agents; Z88.8 Allergy status to other drugs, medicaments and biological substances; Z82.49 Family history of ischemic heart disease and other diseases of the circulatory system; Z79.02 Long term (current) use of antithrombotics/antiplatelets; Z83.3 Family history of diabetes mellitus
CPT/HCPCS: 36415; 71045; 80048; 80053; 80061; 82550; 82553; 83605; 83721; 83880; 84484; 85025; 85347; 85610; 85730; 87641; 93005; 93306; 93454; 99156; 99157; 99285; A9270-GY; C1725; C1760; C1769; C1876; C1887; C8929; C9600-LC; C9606-RC; J0461; J0583; J1644; J1650; J2250; J3010

== ENCOUNTER 2019-05-23 15:44 | Emergency (ER) | payer OTHER ==
--- NOTE | 2019-05-23 16:10 | ED ---
Laceration/Wound HPI - HPI Summary HPI Summary: A 63 y/o male brought in by [facility] presents to [facility] with a chief complaint of a right leg laceration from falling through his deck and scraping his leg a screw. His last tetanus shot was a while ago. He currently rates his pain as a 0/10 in severity. - History of Current Complaint Stated Complaint: RT LEG LAC PER EMS Hx Obtained From: Patient, EMS Onset/Duration: Sudden Onset, Lasting Minutes, Still Present Aggravating: Nothing Alleviating: Nothing Onset Severity: Mild Current Severity: Mild Pain Intensity: 0 Pain Scale Used: 0-10 Numeric Associated Signs & Symptoms: Negative - Additional Pertinent History Primary Care Physician: PERCY - Allergy/Home Medications Allergies/Adverse Reactions: Allergies Allergy/AdvReac Type Severity Reaction Status Date / Time niacin Allergy Severe Muscles Verified 05/23/19 17:22 spasms,burning sensation, flushing pravastatin [From Pravachol] Allergy Severe Muscles Verified 05/23/19 17:22 spasms cephalexin [From Keflex] Allergy Unknown Verified 05/23/19 17:22 Reaction Details PMH/Surg Hx/FS Hx/Imm Hx Endocrine/Hematology History: Denies: Hx Anticoagulant Therapy, Hx Diabetes, Hx Thyroid Disease, Hx Anemia , Hx Unexplained Bleeding Cardiovascular History: Reports: Hx Hypercholesterolemia Denies: Hx Aneurysm, Hx Angina, Hx Angioplasty, Hx Auto Implanted Cardiovert Defib, Hx Cardiac Arrest, Hx Cardiomegaly, Hx Congenital Heart Disease, Hx Congestive Heart Failure, Hx Coronary Artery Disease, Hx Deep Vein Thrombosis, Hx Embolism, Hx Hypotension, Hx Hypertension, Hx Pacemaker/ICD, Hx Peripheral Vascular Disease, Hx Rheumatic Fever, Hx Syncope, Hx Valvular Heart Disease, Other Cardiovascular Problems/Disorders Respiratory History: Denies: Hx Asthma, Hx Chronic Obstructive Pulmonary Disease (COPD) GI History: Denies: Hx Ulcer Musculoskeletal History: Reports: Hx Arthritis - LEFT HIP, LOWER BACK, Other Musculoskeletal History - 3 SOFT TISSUE FUSED VERTABRAE IN NECK-FROM , BILAT HIP REPLACEMENT Sensory History: Reports: Hx Contacts or Glasses Denies: Hx Hearing Aid Opthamlomology History: Reports: Hx Contacts or Glasses - Surgical History Surgery Procedure, Year, and Place: COLONOSCOPY WITH SEDATION, RIGHT HIP REPLACEMENT, left hip replacement Hx Anesthesia Reactions: No Infectious Disease History: Denies: Hx Hepatitis, Hx Human Immunodeficiency Virus (HIV), Hx of Known/ Suspected MRSA, Hx Shingles, Hx Tuberculosis, History Other Infectious Disease - Family History Known Family History: Positive: Hypertension, Diabetes - Social History Alcohol Use: Occasionally Alcohol Amount: 2-4 DRINKS PER WEEK Substance Use Type: Reports: None Smoking Status (MU): Never Smoked Tobacco Review of Systems Negative: Fever, Chills Negative: Erythema Negative: Sore Throat Negative: Chest Pain Negative: Shortness Of Breath, Cough Negative: Abdominal Pain, Vomiting, Nausea Negative: dysuria, hematuria Negative: Myalgia, Edema Positive: Other - positive: right leg laceration. Negative: Rash Neurological: Negative - dizziness All Other Systems Reviewed And Are Negative: Yes Physical Exam - Summary Physical Exam Summary: Constitutional: Well-developed, Well-nourished, Alert. (-) Distressed Skin: Warm, Dry, Laceration right leg 7 inches long and 4 inches wide and gaping HENT: Normocephalic; Atraumatic Eyes: Conjunctiva normal Neck: Musculoskeletal ROM normal neck. (-) JVD, (-) Stridor, (-) Tracheal deviation Cardio: Rhythm regular, rate normal, Heart sounds normal; Intact distal pulses; The pedal pulses are 2+ and symmetric. Radial pulses are 2+ and symmetric. (-) Murmur Pulmonary/Chest wall: Effort normal. (-) Respiratory distress, (-) Wheezes, (-) Rales Abd: Soft, (-) tenderness, (-) Distension, (-) Guarding, (-) Rebound Musculoskeletal: (-) Edema Lymph: (-) Cervical adenopathy Neuro: Alert, Oriented x3 Psych: Mood and affect Normal Triage Information Reviewed: Yes Vital Signs Reviewed: Yes Procedures - Laceration/Wound Repair 1 Location: lower extremity Anesthesia: 2.0%, Lido, Epi Length, Depth and Shape: 7 inches long and 4 inches wide Suture Type: Other - 4-0 Ethilon Number of Sutures: 17 Layer Closure?: Yes 2 Location: lower extremity Anesthesia: 2.0%, Lido, Epi Length, Depth and Shape: 7 inches long and 4 inches wide Suture Type: Vicryl - 4-0 Number of Sutures: 4 Layer Closure?: Yes Laceration Repair Course/Dx - Course Course Of Treatment: A 63 y/o male brought in by [facility] ambulance presents to [facility] with a chief complaint of a right leg laceration from falling through his deck and scraping his leg a screw. His last tetanus shot was a while ago. He currently rates his pain as a 0/10 in severity. The physical exam revealed a right leg laceration that is 7 inches long and 4 inches wide and gaping. The wound was irrigated with saline and chlorhexidine. 17 4-0 Ethilon sutures and 4 deep sutures of 4-0 Vicryl were placed. 20 mls of 2% Lido with epi was used and there was layered closure. The patient will be discharged with prescriptions for Doxycycline and Belsano. The patient was instructed to follow up with his PCP in 2-3 days and get his sutures removed in 10-14 days. The patient is agreeable with this plan. - Clinical Impression Provider Diagnoses: Laceration of leg, right Discharge - Sign-Out/Discharge Documenting (check all that apply): Patient Departure - DC Patient Received Moderate/Deep Sedation with Procedure: No - Discharge Plan Condition: Stable Disposition: HOME Prescriptions: DOXYcycline CAP(*) [DOXYcycline 100MG CAP(*)] 100 mg PO BID #10 cap HYDROcodone/ACETAMIN 5-325 MG* [Belsano 5-325 TAB*] 1 tab PO Q6H PRN #10 tab MDD 4 PRN Reason: Pain - Moderate To Severe Patient Education Materials: Care For Your Stitches (DC), Laceration (DC) Referrals: Luke Morrissey MD [Primary Care Provider] - (2-3 days) Additional Instructions: Sutures are to be removed in 10-14 days RETURN TO THE EMERGENCY DEPARTMENT FOR CHANGING OR WORSENING SYMPTOMS - Attestation Statements Document Initiated by Scribe: Yes Documenting Scribe: Joshua Cabezas Provider For Whom Scribe is Documenting (Include Credential): Vic Schmidt MD Scribe Attestation: IJoshua, scribed for Vic Schmidt MD on 05/23/19 at 1850. Status of Scribe Document: Ready
[2019-05-23] MEDS ORDERED: Lidocaine 1% w EPI 1:100,000* 30 ML VIAL INJ ONE (16:13)
[2019-05-23] MEDS ORDERED: Tetan/Diph/Pertus SYR(Tdap)* 0.5 ML SYR(BOOSTRIX) use SYR IM ONE (16:13)
[2019-05-23] MEDS ORDERED: HYDROcodone/ACETAMIN 5-325 MG* 1 TAB PO ONE (16:13)
[2019-05-23] MEDS ORDERED: Lidocaine 2% w/ EPI 1:200,000* 20 ML VIAL ONE ×2 (16:53→17:13)
[2019-05-23] MEDS ORDERED: Lidocaine 1% MPF ** 5 ML VIAL ONE (17:13)
[2019-05-23] MEDS ORDERED: Lidocaine 2% w/ EPI 1:200,000* 20 ML VIAL INJ ONE (17:50)
[2019-05-23 19:12] VITALS: BP 120/66
== END 2019-05-23 19:11 | disposition home or self-care (01) ==
LOC: ED 15:44
DX: S81.811A Laceration without foreign body, right lower leg, initial encounter (principal); W13.3XXA Fall through floor, initial encounter; Y92.008 Other place in unspecified non-institutional (private) residence as the place of occurrence of the external cause; Z23 Encounter for immunization; Z96.643 Presence of artificial hip joint, bilateral; Z88.1 Allergy status to other antibiotic agents; Z88.8 Allergy status to other drugs, medicaments and biological substances
CPT/HCPCS: 12004; 90471; 90715; 99282

== ENCOUNTER 2019-05-25 15:31 | Emergency (ER) | payer SELFPAY ==
[2019-05-25 16:23] VITALS: BP 91/65
--- NOTE | 2019-05-28 21:44 | UC ---
Skin Complaint HPI - HPI Summary HPI Summary: 63-year-old male who fell through some steps on a deck on 04/23/2019. He sustained a laceration to his right leg and received more than 20 sutures. He was started on doxycycline, however he's only had about 3 doses of that. He complains of increased redness and pain to the right leg. - History of Current Complaint Chief Complaint: UCLowerExtremity Time Seen by Provider: 05/25/19 16:54 Stated Complaint: LEG PAIN Hx Obtained From: Patient Onset/Duration: Sudden Onset Skin Exposure Onset/Duration: Days Ago Timing: Constant Onset Severity: Moderate Current Severity: Moderate Pain Intensity: 0 Pain Scale Used: 0-10 Numeric Location: Other Character: Swelling, Redness - Right lower leg. Aggravating Factor(s): Touch Alleviating Factor(s): Nothing Related History: Trauma - Allergy/Home Medications Allergies/Adverse Reactions: Allergies Allergy/AdvReac Type Severity Reaction Status Date / Time niacin Allergy Severe Muscles Verified 05/25/19 16:23 spasms,burning sensation, flushing pravastatin [From Pravachol] Allergy Severe Muscles Verified 05/25/19 16:23 spasms cephalexin [From Keflex] Allergy Unknown Verified 05/25/19 16:23 Reaction Details Home Medications: Home Medications Metoprolol Succinate XL TAB* [Toprol XL TAB*] 25 mg PO DAILY 05/25/19 [History Confirmed 05/25/19] PMH/Surg Hx/FS Hx/Imm Hx Previously Healthy: Yes Other History Of: Negative For: Anticoagulant Therapy - Surgical History Surgical History: Yes Surgery Procedure, Year, and Place: COLONOSCOPY WITH SEDATION, RIGHT HIP REPLACEMENT, left hip replacement - Family History Known Family History: Positive: Hypertension, Diabetes - Social History Alcohol Use: Weekly Alcohol Amount: 2-4 DRINKS PER WEEK Substance Use Type: None Smoking Status (MU): Never Smoked Tobacco - Immunization History Most Recent Influenza Vaccination: NO Most Recent Tetanus Shot: 05/23/19 Most Recent Pneumonia Vaccination: NO Review of Systems All Other Systems Reviewed And Are Negative: Yes Skin: Positive: Other - Redness to his right lower leg. Is Patient Immunocompromised?: No Physical Exam Triage Information Reviewed: Yes Appearance: Well-Appearing, No Pain Distress, Well-Nourished Vital Signs: Initial Vital Signs Temp 98.2 F 07/19/19 16:16 Pulse 80 05/25/19 16:16 Resp 16 05/25/19 16:16 BP 91/65 05/25/19 16:16 Pulse Ox 98 05/25/19 16:16 Vital Signs Reviewed: Yes Musculoskeletal: Positive: Strength Intact, Other: - Good peripheral pulses neuro sensation and capillary refill. Neurological: Positive: Alert, Muscle Tone Normal Psychological Exam: Normal Skin: Positive: Other - Patient has a sutured laceration and sutures appear intact. He does have some erythema surrounding the wound. No pus is present. It is mildly tender on palpation. Course/Dx - Course Course Of Treatment: X-ray of his right tib-fib was negative for foreign body or for fracture. He is to continue the doxycycline elevate his leg as much as possible. He is to follow-up with his primary care provider if any worsening symptoms over the next day or 2 or if he start running a fever or chills - Diagnoses Provider Diagnosis: Cellulitis Discharge - Sign-Out/Discharge Documenting (check all that apply): Patient Departure All imaging exams completed and their final reports reviewed: Yes - Discharge Plan Condition: Fair Disposition: HOME Patient Education Materials: Cellulitis (DC) Referrals: Luke Morrissey MD [Primary Care Provider] - Additional Instructions: Elevate as much as possible, change dressing daily, ambulate as discomfort permits. Keep your appointment with your primary care provider for recheck or for suture removal. If you develop fever, chills, red streaks up her leg your to go to the emergency room. No dairy products, antacids or multivitamins 2 hours before you take doxycycline and 2 hours after you take doxycycline. However you do want to take doxycycline with food. - Billing Disposition and Condition Condition: FAIR Disposition: Home
== END 2019-05-25 17:50 | disposition home or self-care (01) ==
LOC: UCEAST 15:31
DX: L03.115 Cellulitis of right lower limb (principal); Z96.643 Presence of artificial hip joint, bilateral; Z88.1 Allergy status to other antibiotic agents; Z88.8 Allergy status to other drugs, medicaments and biological substances
CPT/HCPCS: 99211; G0463